=== PATIENT | male | born 1995 | race Hispanic/Latino ===

== ENCOUNTER 2024-08-09 15:42 | Emergency (ER) | payer SELFPAY ==
[2024-08-09 15:48] VITALS: BP 184/127
[2024-08-09 16:46] VITALS: BMI 29.6
--- NOTE | 2024-08-09 16:59 | ED.GENMED ---
History of Present Illness
<Landy Mcclure PA-C - Last Filed: 08/09/24 21:10>
General
Chief Complaint: Skin Surface Trauma
Source: patient
Exam Limitations: none
Time Seen by Provider: 08/09/24 16:45
History of Present Illness
History of Present Illness:
29yo right hand dominant male presenting with his [id number] for evaluation of a right ring finger injury. Patient was doing some yard work and was moving a large stone. The stone accidentally landed on his ring finger causing a crush injury to
the distal digit. No paresthesias. Last Tdap about 3 years ago.
Phy Exam
<Landy Mcclure PA-C - Last Filed: 08/09/24 21:10>
General Physical Exam
General Presentation: well appearing
General Skin: warm and dry
General Habitus: normal
General Mental: alert
ENT Exam
ENT Exam: normocephalic
Musculoskeletal Exam
Musculoskeletal Exam: other (Crush injury noted to the R distal ring finger. Nailbed lifted and partially removed. There are lacerations noted to both medial and lateral aspects of the distal digit. Sensation intact. ROM of DIP and PIP joints
normal.)
Skin Exam
Skin Exam: warm/dry
Psychiatric Exam
Psychiatric Exam: normal mood/affect
Course
<Landy Mcclure PA-C - Last Filed: 08/09/24 21:10>
Orders/Labs/Results
Orders:
Orders
08/09/24 15:50
Finger(s)/Thumb 2 View Rt [CR Finger(s)/thumb Min 2 Vw Rt] Urgent
Comment:
Reason For Exam: crush injury to fourth digit
08/09/24 17:21
HYDROmorphone [Dilaudid] 1 mg .ROUTE .ST-MED ONE
08/09/24 17:26
HYDROmorphone [Dilaudid] 1 mg IV NOW STA
08/09/24 17:52
HYDROmorphone [Dilaudid] 1 mg IV NOW STA
08/09/24 18:13
CeFAZolin 2 GRAM [Ancef] 2 grams in 10 ml IV PRE PROCEDURE
08/09/24 18:14
Aluminium Finger Splint Right ONCE
Vital Signs
Initial and Last Documented VS:
Initial Vital Signs
Temp Pulse Resp BP Pulse Ox
98 F 108 16 184/127 98
08/09/24 15:48 08/09/24 15:48 08/09/24 15:48 08/09/24 15:48 08/09/24 15:48
Last Documented Vital Signs
Temp Pulse Resp BP Pulse Ox
97.7 F 109 16 168/109 100
08/09/24 18:52 08/09/24 18:52 08/09/24 18:52 08/09/24 18:52 08/09/24 18:52
<Mao Shah, DO - Last Filed: 08/09/24 18:19>
Orders/Labs/Results
Orders:
Orders
08/09/24 15:50
Finger(s)/Thumb 2 View Rt [CR Finger(s)/thumb Min 2 Vw Rt] Urgent
Comment:
Reason For Exam: crush injury to fourth digit
08/09/24 17:21
HYDROmorphone [Dilaudid] 1 mg .ROUTE .STK-MED ONE
08/09/24 17:26
HYDROmorphone [Dilaudid] 1 mg IV NOW STA
08/09/24 17:52
HYDROmorphone [Dilaudid] 1 mg IV NOW STA
08/09/24 18:13
CeFAZolin 2 GRAM [Ancef] 2 grams in 10 ml IV PRE PROCEDURE
08/09/24 18:14
Aluminium Finger Splint Right ONCE
Vital Signs
Initial and Last Documented VS:
Initial Vital Signs
Temp Pulse Resp BP Pulse Ox
98 F 108 16 184/127 98
08/09/24 15:48 08/09/24 15:48 08/09/24 15:48 08/09/24 15:48 08/09/24 15:48
Last Documented Vital Signs
Temp Pulse Resp BP Pulse Ox
97.7 F 109 16 168/109 100
08/09/24 18:52 08/09/24 18:52 08/09/24 18:52 08/09/24 18:52 08/09/24 18:52
Procedures
<Landy Mcclure PA-C - Last Filed: 08/09/24 21:10>
Laceration Closure
Right Fourth Finger:
Size of Wound in cm: 5
Description of Wound Edges: ragged
Preparation: cleaned with saline
Anesthesia: 1% Lidocaine
Revision/Debridement: other (Nail removed)
Wound exploration: explored to base- no FB
Type of Closure: single layer closure and interrupted sutures
Skin Closure Material: 4-0 nylon (11) and 4-0 chromic gut (2)
Additional information:
Nail removed. 11 nylon sutures placed to close skin. 2 chromic gut sutures used to approximate nail bed laceration. Dressing and finger splint applied.
<Landy Mcclure PA-C - Last Filed: 08/09/24 21:10>
MDM/Problems Addressed
Differential Diagnosis Includes:
29yoM here with a crush injury to his R distal ring finger. Moving a large stone when the stone fell on his finger. There is an obvious nail bed injury on exam with the nail lifted and partially removed. ROM and sensation intact. Differential
diagnosis includes: laceration, open fracture
Wound was cleaned extensively. Nail removed and laceration repaired as above. X-rays show a possible fracture fragment vs. foreign body. Wound dressed and finger splint applied. Dose of IV Ancef given and he was started on a course of Keflex. Home
wound care discussed and advised f/u with hand surgery. Patient instructed to have sutures removed in 14 days and return to the ED with any signs of infection.
<Landy Mcclure PA-C - Last Filed: 08/09/24 21:10>
*Critical Care Note
Total Time (30-74mins, 75-104mins- exclusive of procedures): Not Applicable
ED Attending Note
<Landy Mcclure PA-C - Last Filed: 08/09/24 21:10>
-
Portions of this chart may have been created with voice recognition software.� Occasional wrong word or��sound alike� substitutions may have occurred due to the inherent limitations of voice recognition software.
<Mao Shah DO - Last Filed: 08/09/24 18:19>
ED Attending Note
Patient seen and examined by attending physician: Yes
I performed the substantive portion of visit, reviewed & personally made and approve the management plan that is documented in note by myself or DONNA.: Yes
ED Attending Note:
Seen with PA crush injury with nailbed laceration
Discharge Plan
Departure
Patient Disposition: Home (Routine Discharge)
Date of Disposition: 08/09/24
Time of Disposition: 18:35
Patient with high blood pressure during this ER visit?: Yes
Discharge Problem:
Crushing injury of right ring finger, initial encounter, Nailbed laceration, finger
Instructions: Laceration Repair With Stitches (DC)
Prescriptions:
New
cephalexin 500 mg capsule
500 mg PO Q6H 7 Days Qty: 28 0RF
Referrals:
Jesus Sr MD [Active, Orthopedics]
Nehal Adan MD [Family Provider, Family Practice]
Activity Restrictions/Additional Instructions:
Take antibiotics as prescribed. Change dressings daily. Wear finger splint for immobilization.
Please call hand surgery tomorrow to schedule a follow-up appointment. Sutures need to be removed in 14 days.
Return to the ER with any signs of infection.
Interventions
Interventions:
*Risk Screen - Suicide Last Done: 08/09/24 15:49
*General Assessment Last Done: 08/09/24 16:46
*Neglect/Abuse Screening Last Done: 08/09/24 15:49
*ED- Fall Risk Assessment Last Done: 08/09/24 16:46
*ED COVID-19 Vaccine History Last Done: 08/09/24 16:46
*Nursing Disposition Last Done: 08/09/24 18:52
ED-Skin Assessment Last Done: 08/09/24 16:46
Discharge Date and Time
Discharge Date/Time: 08/09/24 18:53
Print Language: [email or web address]
[2024-08-09] MEDS: DILAUDID 1 MG IV ×2 (17:27→17:56)
[2024-08-09] MEDS: ANCEF 10 IV (18:42)
[2024-08-09 18:49] VITALS: BP 168/109
--- NOTE | 2024-08-09 18:51 | EDRN ---
Discharge instructions reviewed with patient and his sister in law. Verbalized understanding.
[2024-08-09 18:52] VITALS: BP 168/109
== END 2024-08-09 18:53 | disposition home or self-care (01) ==
LOC: EMR 15:42
PROVIDERS: EMERGENCY PHYSICIAN Emergency Medicine; FAMILY PHYSICIAN Family Medicine
DX: S67.194A Crushing injury of right ring finger, initial encounter (principal); W23.0XXA Caught, crushed, jammed, or pinched between moving objects, initial encounter
CPT/HCPCS: 99283; 96374; 96375; 96376; 73140